=== PATIENT | female | born 1965 | race Caucasian/White ===

== ENCOUNTER 2024-02-16 01:11 | Emergency (ER) | payer OTHER, SELFPAY ==
[2024-02-16] VITALS (20 sets, daily range): BP systolic 111–156; BP diastolic 78–102; PULSE 89–128; TEMP 37.1; O2SAT 91–99; BMI 23.9
--- NOTE | 2024-02-16 01:30 | XR_ITS ---
The [address] [address] Patient Name: JARVIS DUMONT MRN: [id number] date: 1965 Sex: F Assigned Patient Location: ER Current Patient Location: ER Accession/Order Number: [id number] Exam Date: 02/16/2024 01:40 Report Date: 02/16/2024 04:01 At the request of: YARED MACHUCA Procedure: XR chest 2V EXAM: XR chest 2V HISTORY: cough COMPARISON: None. TECHNIQUE: PA and lateral views of the chest performed. FINDINGS: The trachea is midline. The heart size is normal. There is mild atheromatous calcification at the aortic arch. Hilar shadows are unremarkable. On the lateral projection, there is mild patchy airspace disease at the lung base posteriorly which in the right clinical setting is consistent with a pneumonia. There is no pleural effusion or pulmonary vascular congestion. There is no pneumothorax or acute osseous abnormality. XR/XR chest 2V IMPRESSION: On the lateral projection, there is mild patchy airspace disease at the lung base posteriorly which in the right clinical setting is consistent with a pneumonia. Electronically authenticated by: AQUILES RUSSELL Date: 02/16/2024 04:01
[2024-02-16 01:51] LABS: Influenza Virus A Antigen Negative; Influenza Virus B Antigen Negative; Internal Control Within Normal Limits; SARS-CoV-2 Ag NEGATIVE (NEGATIVE)
[2024-02-16 01:52] LABS: Internal Control Within Normal Limits
[2024-02-16] MEDS: PREDNISONE 20 MG TABLET 40 MG PO (02:15)
[2024-02-16] MEDS: IPRATROPIUM/ALBUTEROL SULFATE 3 ML AMPUL.NEB 9 ML IH (02:26)
--- NOTE | 2024-02-16 02:58 | ECG_ITS ---
The [facility] Test Date: 2024-02-16 Pat Name: JARVIS DUMONT Department: Room: - Gender: Female [employer]: : 1965 Requested By: CHAY PERES Order Number: [id number] Reading MD: EVI KAHN Measurements Intervals [place] Rate: 111 P: 14 MS: 134 QRS: 89 QRSD: 80 T: 79 QT: 336 QTc: 401 Interpretive Statements 1120 Sinus tachycardia 9140 abnormal rhythm ECG No previous ECG available for comparison Electronically Signed On 02-18-2024 8:14:09 EST by EVI KAHN
[2024-02-16 03:04] LABS: Hematocrit 41.7 % (36.0-48.0); Hemoglobin 14.6 g/dL (12.0-16.0); Mean Corpuscular Hemoglobin 33.6 pg (26.7-34.0); Mean Corpuscular Volume 95.9 fL (81.0-99.0); Mean Platelet Volume 9.1 fL (9.5-13.5); Platelet Count 355 10^3/uL (150-450); Red Blood Count 4.35 10^6/uL (4.20-5.40); Red Cell Distribution Width 11.9 % (11.0-15.0); White Blood Count 15.9 10^3/uL (4.0-11.0)
[2024-02-16 03:22] LABS: Anion Gap 11.2; Calcium 8.7 mg/dL (8.5-10.1); Carbon Dioxide 29.2 mmol/L (21.0-32.0); Chloride 95 mmol/L (98-107); Estimated GFR (African America >60 (>=60 mL/min/1.73m^2); Estimated GFR (Non-African Ame >60 (>=60 mL/min/1.73m^2); Glucose 152 mg/dL (74-106); Potassium 3.4 mmol/L (3.5-5.1); Sodium 132 mmol/L (136-145)
[2024-02-16 03:54] LABS: Lymphocytes Absolute Manual 2.54 10^3/uL (1.20-3.80); Monocytes Absolute Manual 2.38 10^3/uL (0.30-0.80); Segmented Neut Absolute Manual 10.97 10^3/uL (1.4-6.5)
--- NOTE | 2024-02-16 04:25 | ED_ITS ---
HPI HPI - General Adult General Chief complaint: Shortness of Breath/Dyspnea Stated complaint: SOB, COUGH Time Seen by Provider: 02/16/24 01:30 History of Present Illness HPI narrative: 58-year-old female to the emergency department chief complaint of cough, shor tness of breath. She was recently visiting some family that all had pneumonia. Patient reports she has a history of COPD and emphysema. She has been coughing, mild shortness of breath. No fever, sweats, chills. No chest pain. She is otherwise at her baseline health. Related Data Home Medications ?Medication ?Instructions ?Recorded ?Confirmed albuterol sulfate 90 mcg/actuation inhalation 02/16/24 aerosol inhaler atorvastatin 80 mg tablet mg 02/16/24 buspirone 5 mg tablet mg 02/16/24 duloxetine 60 mg capsule,delayed mg PO 02/16/24 release risperidone 3 mg tablet mg 02/16/24 Previous Rx's ?Medication ?Instructions ?Recorded amoxicillin 875 mg-potassium 1 tab PO Q12H #14 tabs 02/16/24 clavulanate 125 mg tablet doxycycline monohydrate 100 mg 100 mg PO BID 7 days #14 caps 02/16/24 capsule prednisone 20 mg tablet 40 mg (2 x 20 mg) PO DAILY 5 days 02/16/24 #10 tabs Allergies Allergy/AdvReac Type Severity Reaction Status Date / Time No Known Drug Allergies Allergy Verified 02/16/24 01:22 Opioid HPI Opioid Management Most Recent Opioid Data: No Data to Display Review of Systems ROS Status of ROS 10 or more systems reviewed and unremark able except as noted in history and below PFSH PFSH Social History Little interest or pleasure in doing things: not at all Feeling down, depressed, or hopeless: not at all Exam Narrative Exam Narrative: VITALS: I have reviewed the triage vital signs. GENERAL: Well developed, well appearing adult in no acute distress. NEURO: Alert and oriented. Moves all extremities. Face is symmetric and expressive. EYES: PERRL. No scleral icterus or conjunctival injection. No discharge. HENT: Normocephalic, atraumatic. Hearing is grossly intact. Nares grossly patent and without discharge. Mucous membranes moist. NECK: No JVD. Patient moves neck without restriction. CARDIO: Rhythm regular. Normal rate. No murmur, rub, or gallop. Pulses equal bilaterally in the upper and lower extremity. No lower extremity edema. PULM: Trace wheezes. Diminished at the bases bilaterally no conversational dyspnea. No increased work of breathing. GI/: Abdomen is soft and non-tender. Normoactive bowel sounds. EXTREMITIES: Symmetric muscle bulk. No joint swelling. No clubbing, cyanosis, or deformity. SKIN: Warm and dry. Normal turgor. No rash or lesions appreciated. PSYCH: Mood, affect, and interaction is appropriate to the setting. Constitutional Vital Signs, click to edit/add: Last Vital Signs Temp 98.7 F 02/16/24 01:18 Pulse 89 02/16/24 03:30 Resp 29 H 02/16/24 03:30 BP 111/78 02/16/24 03:30 Pulse Ox 93 L 02/16/24 03:45 O2 Del Method Room Air 02/16/24 03:45 Course Vital Signs Vital signs: Vital Signs Temperature 98.7 F 02/16/24 01:18 Pulse Rate 112 H 02/16/24 01:18 Respiratory Rate 30 H 02/16/24 01:18 Blood Pressure 156/102 H 02/16/24 01:18 Pulse Oximetry 93 L 02/16/24 01:18 Oxygen Delivery Method Room Air 02/16/24 01:18 Temperature 98.7 F 02/16/24 01:18 Pulse Rate 89 02/16/24 03:30 Respiratory Rate 29 H 02/16/24 03:30 Blood Pressure 111/78 02/16/24 03:30 Pulse Oximetry 93 L 02/16/24 03:45 Oxygen Delivery Method Room Air 02/16/24 03:45 Medical Decision Making [facility] Narrative Medical decision making narrative: 58-year-old female to the emergency department chief complaint of cough and shortness of breath. Vital stable, the patient is afebrile. Viral swabs, chest x-ray, basic labs ordered breathing treatment and steroids. Patient agrees with this plan. Lab work reviewed and noted. Chemistry is unremarkable. She has a mild leukocytosis. Troponin normal. BNP within normal limits. Chest x-ray with infiltrate. [place] mildly improved after her breathing treatments. Ambulatory pulse ox without any desaturation. Discussed findings with the patient. Will treat her for pneumonia and COPD exacerbation at home. Return precautions were discussed. All questions were answered. The patient was discharged home. Medical Records Medical records reviewed: Yes I reviewed the patient's medical records Lab Data Lab results reviewed: Yes I reviewed the patient's lab results Labs: Lab Results 02/16/24 02/16/24 Range/Units 01:25 01:28 WBC 15.9 H (4.0-11.0) 10^3/uL RBC 4.35 (4.20-5.40) 10^6/uL Hgb 14.6 (12.0-16.0) g/dL Hct 41.7 (36.0-48.0) % MCV 95.9 (81.0-99.0) fL MCH 33.6 (26.7-34.0) pg MCHC 35.0 (29.9-35.2) g/dL RDW 11.9 (11.0-15.0) % Plt Count 355 (150-450) 10^3/uL MPV 9.1 L (9.5-13.5) fL Seg Neuts % (Manual) 69.0 (43.0-75.0) Lymphocytes % (Manual) 16.0 L (20.5-60.0) % Monocytes % (Manual) 15.0 H (1.7-12.0) % Eosinophils % (Manual) 0.0 L (0.9-7.0) % Basophils % (Manual) 0.0 L (0.2-2.0) % Neutrophils # (Manual) 10.97 H (1.4-6.5) 10^3/uL Lymphocytes # (Manual) 2.54 (1.20-3.80) 10^3/uL Monocytes # (Manual) 2.38 H (0.30-0.80) 10^3/uL Eosinophils # (Manual) 0.00 (0.00-0.70) 10^3/uL Basophils # (Manual) 0.00 (0.00-0.10) 10^3/uL Sodium 132 L (136-145) mmol/L Potassium 3.4 L (3.5-5.1) mmol/L Chloride 95 L (98-107) mmol/L Carbon Dioxide 29.2 (21.0-32.0) mmol/L Anion Gap 11.2 BUN 4.0 L (7.0-18.0) mg/dL Creatinine 0.80 (0.55-1.02) mg/dL Est GFR ( Amer) >60 (>=60 mL/min/1.73m^2) Est GFR (Non-Af Amer) >60 (>=60 mL/min/1.73m^2) BUN/Creatinine Ratio 5.0 Glucose 152 H (74-106) mg/dL Calcium 8.7 (8.5-10.1) mg/dL Troponin I High Sens 8.0 (4.0-51.3) pg/mL NT-Pro-B Natriuret Pep 521.0 (<=900.0) pg/mL Influenza Type A Ag Negative Influenza Type B Ag Negative SARS-CoV-2 Ag (CV2AG) Negative (NEGATIVE) Imaging Data Chest x-ray: Attestation: I have reviewed the pertinent imaging results. Radiologist's impression: ITS Impressions Chest X-Ray 02/16/24 01:30 IMPRESSION: On the lateral projection, there is mild patchy airspace disease at the lung base posteriorly which in the right clinical setting is consistent with a pneumonia. Electronically authenticated by: AQUILES RUSSELL Date: 02/16/2024 04:01 ECG Data Attestation: I personally reviewed and interpreted this ECG as follows: (Sinus tachycardia at a rate of 111. No ST changes. QTc is normal at 401) Discharge Plan Discharge Chief Complaint: Shortness of Breath/Dyspnea Clinical Impression: Pneumonia Patient Disposition: Home, Self-Care Time of Disposition Decision: 04:17 Condition: Good Mode of Transportation: Private Vehicle Prescriptions / Home Meds: New prednisone 20 mg tablet 40 mg PO DAILY 5 Days Qty: 10 0RF doxycycline monohydrate 100 mg capsule 100 mg PO BID 7 Days Qty: 14 0RF amoxicillin-pot clavulanate 875-125 mg tablet 1 tab PO Q12H Qty: 14 0RF No Action buspirone 5 mg tablet atorvastatin 80 mg tablet risperidone 3 mg tablet albuterol sulfate 90 mcg/actuation HFA aerosol inhaler INHALATION duloxetine 60 mg capsule,delayed release(DR/EC) PO Print Language: Haitian Instructions: Community Acquired Pneumonia (ED) Additional Instructions: Call the office of your primary care doctor to arrange for follow-up within the above-stated timeframe. Your ED visit was focused on your acute issue and does not replace primary care. You should review your labs, imaging, and diagnoses from this ED visit with your primary care physician. There may be non-emergent/ incidental findings that need further evaluation. You should review your vital signs including blood pressure with your PCP. If you were prescribed medications you should discuss possible side-effects and drug interactions with your pharmacist. Call 911 or go to the nearest Emergency Department if you develop any new or worsening symptoms. Seek immediate medical attention if you develop: worsening shortness of breath, difficulty breathing, chest pain, nausea, vomiting, weakness, numbness, tingling, excessive sweating, loss of motion in your arms or legs, or any new or worsening symptoms. Referrals: CHAY PERES [Primary Care Provider] - 1 week
[2024-02-16] MEDS: DOXYCYCLINE MONOHYDRATE 100 MG CAPSULE PO (04:33)
[2024-02-16] MEDS: AMOXICILLIN/POT CLAV 875-125 MG TABLET 1 TAB PO (04:33)
== END 2024-02-16 04:40 | disposition home or self-care (01) ==
PROVIDERS: Emergency Provider Student in an Organized Health Care Education/Training Program; PCP Family Medicine
DX: J18.9 Pneumonia, unspecified organism (principal); J43.9 Emphysema, unspecified; R06.02 Shortness of breath
CPT/HCPCS: 36415; 71046; 80048; 83880; 84484; 85007; 85027; 87804; 87811; 93005; 94640; 99285; J7512